=== PATIENT | female | born 2000 | race Caucasian/White ===

== ENCOUNTER 2022-05-08 16:44 | Emergency (ER) | payer MEDICAID ==
[~2022-05-08] VITALS: Ht 167.6 cm; Wt 70.9 kg
[2022-05-08 17:12] VITALS: BP 113/53
[2022-05-08] MEDS ORDERED: IBUPROFEN 600 MG TABLET PO ONE (19:15)
== END 2022-05-08 20:37 | disposition home or self-care (01) ==
LOC: EMS 16:46
DX: M25.522 Pain in left elbow (principal)
CPT/HCPCS: 99282; Z7502; Z7610

== ENCOUNTER 2025-07-06 11:35 | Emergency (ER) | payer MEDICAID ==
[~2025-07-06] VITALS: Ht 157.5 cm; Wt 72.7 kg
[2025-07-06 11:39] VITALS: BP 140/91; PULSE 99; RESP 18; TEMP 98.1; O2SAT 96
[2025-07-06 11:48] LABS: COVID AG,FIA SOURCE NASAL SWAB
[2025-07-06 12:28] LABS: INFLUENZA TYPE A NEGATIVE FOR TYPE A (NEGATIVE); INFLUENZA TYPE B NEGATIVE FOR TYPE B (NEGATIVE); SARS-COV2 (COVID) ANTIGEN,FIA Negative (Negative)
[2025-07-06 12:35] LABS: PLATELET COUNT (AUTO) 297 K/uL (150-450); RED BLOOD CELL COUNT(AUTO) 4.73 MIL/uL (4.00-5.20); RED CELL DISTRIBUTION WIDTH 12.9 % (11.5-14.5); WHITE BLOOD COUNT (AUTO) 6.1 K/uL (4.5-11.0)
[2025-07-06 12:41] LABS: CALCIUM, TOTAL 9.0 mg/dL (8.8-10.5); CREATININE 0.99 mg/dL (0.60-1.30); GLOMERULAR FILTR. RATE CALC > 60 mL/min (>60); GLUCOSE,RANDOM 144 mg/dL (70-110); SODIUM SERUM 133 mmol/L (136-145); UREA NITROGEN, BLOOD 8 mg/dL (7-18)
== END 2025-07-06 13:32 | disposition home or self-care (01) ==
LOC: EMS 11:37
DX: R05.9 Cough, unspecified (principal); R50.9 Fever, unspecified; R11.2 Nausea with vomiting, unspecified; R07.89 Other chest pain; Z20.822 Contact with and (suspected) exposure to COVID-19
CPT/HCPCS: 71046; 80048; 85025; 87804; 93005; 99285; 36415-L1; 36415-TC